=== PATIENT | male | born 2000 | race Caucasian/White ===

== ENCOUNTER 2019-09-13 19:54 | Emergency (ER) | payer OTHER ==
[2019-09-13 20:34] VITALS: BP 129/64
--- NOTE | 2019-09-13 20:34 | UC ---
Laceration HPI - HPI Summary HPI Summary: 18 yo male sustained a laceration to his left eye brow playing flag football minimal pain no GUILLAUME no LOC no neck pain Td UTD - History Of Current Complaint Chief Complaint: UCLaceration Stated Complaint: LEFT EYEBROW LACERATION Time Seen by Provider: 09/13/19 20:16 Hx Obtained From: Patient Laceration Location: Face Mechanism Of Injury: Blunt Trauma Onset/Duration: Sudden Onset Severity: Mild Pain Intensity: 0 Pain Scale Used: 0-10 Numeric Aggravating Factors: Nothing Head: 1 - lac as noted - Allergies/Home Medications Allergies/Adverse Reactions: Allergies Allergy/AdvReac Type Severity Reaction Status Date / Time No Known Allergies Allergy Verified 09/13/19 20:21 Home Medications: Home Medications NK [No Home Medications Reported] 09/13/19 [History Confirmed 09/13/19] PMH/Surg Hx/FS Hx/Imm Hx Previously Healthy: Yes - Surgical History Surgical History: Yes Surgery Procedure, Year, and Place: Chest tube. Right wrist fx reduction - Family History Known Family History: Positive: Other - dyslipidemia Negative: Cardiac Disease, Hypertension - Social History Alcohol Use: Occasionally Substance Use Type: None Smoking Status (MU): Never Smoked Tobacco Type: Smokeless Tobacco Amount Used/How Often: less than a can per yr. Length of Time of Smoking/Using Tobacco: 2 yrs. Have You Smoked in the Last Year: Yes Review of Systems All Other Systems Reviewed And Are Negative: Yes Constitutional: Positive: Negative Skin: Positive: Other - LAC Eyes: Positive: Negative ENT: Positive: Negative Respiratory: Positive: Negative Cardiovascular: Positive: Negative Gastrointestinal: Positive: Negative Genitourinary: Positive: Negative Motor: Positive: Negative Neurovascular: Positive: Negative Musculoskeletal: Positive: Negative Neurological: Positive: Negative Psychological: Positive: Negative Physical Exam Triage Information Reviewed: Yes Appearance: Well-Appearing, No Pain Distress, Well-Nourished Vital Signs: Initial Vital Signs Temp 98.7 F 09/13/19 20:22 Pulse 101 09/13/19 20:22 Resp 16 09/13/19 20:22 BP 129/64 09/13/19 20:22 Pulse Ox 99 09/13/19 20:22 Vital Signs Reviewed: Yes Eyes: Positive: Conjunctiva Clear ENT: Positive: Hearing grossly normal, TMs normal, Uvula midline. Negative: Pharyngeal erythema, Nasal congestion, Nasal drainage, Tonsillar swelling, Tonsillar exudate, Trismus, Muffled voice, Hoarse voice Dental Exam: Normal Neck: Positive: Supple, Nontender Respiratory: Positive: Lungs clear, Normal breath sounds, No respiratory distress, No accessory muscle use Cardiovascular: Positive: RRR, No Murmur Musculoskeletal: Positive: ROM Intact, No Edema Neurological: Positive: Alert Psychological Exam: Normal Skin Exam: Other Procedures - Laceration/Wound Repair 1 Location: head Description: Linear Anesthesia: Local, 1.0%, Epi Length, Depth and Shape: 1.2 cm/ 2-3 mm/linear Irrigated w/ Saline (ccs): 100 Laceration/Wound Explored: clean Closure: Single Layer Suture Type: Prolene - 5-0 Number of Sutures: 3 Layer Closure?: No Sterile Dressing Applied?: Yes Laceration Course/Dx - Diagnosis Provider Diagnosis: Laceration of left eyebrow Discharge ED - Sign-Out/Discharge Documenting (check all that apply): Patient Departure All imaging exams completed and their final reports reviewed: No Studies - Discharge Plan Condition: Stable Disposition: HOME Patient Education Materials: Care For Your Stitches (ED) Additional Instructions: sutures out in 5-7 days [facility] should be able to remove them ice packs call for any questions return for any problems - Billing Disposition and Condition Condition: STABLE Disposition: Home
[2019-09-13] MEDS ORDERED: Lidocaine 2% w EPI 1:100,000* 20 ML MDV VIAL INJ ONE (20:44)
[2019-09-13] MEDS ORDERED: Lidocaine 1% w EPI 1:200,000* SDV 30 ML VIAL INJ ONE (20:49)
== END 2019-09-13 21:26 | disposition home or self-care (01) ==
LOC: UCCORT 19:54
DX: S01.112A Laceration without foreign body of left eyelid and periocular area, initial encounter (principal); X58.XXXA Exposure to other specified factors, initial encounter; Y93.62 Activity, american flag or touch football; Y92.9 Unspecified place or not applicable; F17.220 Nicotine dependence, chewing tobacco, uncomplicated
CPT/HCPCS: 12001; 12011; 99201; G0463; J2001